=== PATIENT | male | born 1970 | race African-American/Black ===

== ENCOUNTER 2020-01-11 09:06 | Emergency (ER) | payer OTHER ==
[2020-01-11 09:19] VITALS: BP 158/89; PULSE 77; TEMP 98.6; BMI 42.2
[2020-01-11] MEDS ORDERED: NAPROXEN 500 MG TABLET PO ONE (09:25)
[2020-01-11] MEDS ORDERED: NAPROXEN 500 MG TABLET ONE (09:32)
== END 2020-01-11 10:12 | disposition home or self-care (01) ==
LOC: JER 09:06 → JERFT 09:06
DX: M25.552 Pain in left hip (principal); M54.5 Low back pain; V89.2XXA Person injured in unspecified motor-vehicle accident, traffic, initial encounter
CPT/HCPCS: 72100-TC-FY; 73502-TC-LT-FY; 99284-25

== ENCOUNTER 2024-02-16 17:50 | Observation (INO) | payer BC, OTHER ==
[2024-02-16] MEDS ORDERED: ACETAMINOPHEN INJECTION 100 ML ONE (18:51)
[2024-02-16] MEDS: ACETAMINOPHEN 1000 MG/100 ML BAG IVPB ONE (18:59)
[2024-02-16 19:13] LABS: BASO % 0.8 % (0-2.0); EOS % 2.8 % (0-4.5); HEMATOCRIT 41.5 % (35.4-49); HEMOGLOBIN 14.1 GM/dL (11.7-16.9); LYMPH % 13.6 % (8-40); MCH 31.9 pg (25.7-33.7); MEAN CELL VOLUME 93.9 fl (80-96); MEAN PLT VOLUME 8.6 fl (7.5-11.1); MONO % 15.3 % (3.8-10.2); NEUT % 67.5 % (42.8-82.8); PLATELET COUNT 126 10^3/uL (134-434); RBC 4.42 M/mm3 (4.00-5.60); RDW 13.6 % (11.9-15.9); WHITE BLOOD COUNT 3.6 K/mm3 (4.0-10.0)
[2024-02-16 19:33] LABS: POTASSIUM 4.1 mmol/L (3.5-5.1)
[2024-02-16 19:36] LABS: CALCIUM 8.6 mg/dL (8.5-10.1)
[2024-02-16 19:37] LABS: ALBUMIN 2.9 g/dl (3.4-5.0)
[2024-02-16 19:40] LABS: CREATININE 0.7 mg/dL (0.55-1.3)
[2024-02-16 19:42] LABS: BILIRUBIN,TOTAL 0.5 mg/dL (0.2-1); TOT PROT 8.1 g/dl (6.4-8.2)
[2024-02-16 19:45] LABS: N-TERMINAL BNP 128.2 pg/ml (5-125)
[2024-02-16] MEDS ORDERED: OSELTAMIVIR PHOSPHATE 75 MG CAPSULE ONE (20:35)
[2024-02-16] MEDS: OSELTAMIVIR PHOSPHATE 75 MG CAPSULE PO ONE (20:42)
[2024-02-16 21:08] LABS: EPI CELLS 30 /uL (0-25.1); HYALINE CASTS 1 /uL (0-3.1); URINE APPEARANCE CLEAR; URINE BACTERIA 81 /uL (0-1359); URINE BILIRUBIN NEGATIVE (NEGATIVE); URINE COLOR YELLOW; URINE GLUCOSE (UA) NEGATIVE (NEGATIVE); URINE KETONE NEGATIVE (NEGATIVE); URINE LEUK ESTERASE 2+ (NEGATIVE); URINE NITRITE NEGATIVE (NEGATIVE); URINE PROTEIN NEGATIVE (NEGATIVE); URINE RBC 17 /uL (0-23.9); URINE WBC 323 /uL (0-25.8)
[2024-02-16] MEDS: BENZONATATE 200 MG CAPSULE PO PRN (22:57)
[2024-02-17] MEDS ORDERED: FUROSEMIDE 40 MG/4 ML INJECTABLE VIAL ONE (01:22)
[2024-02-17] MEDS: FUROSEMIDE 40 MG/4 ML INJECTABLE VIAL IVPUSH ONE (01:44)
[2024-02-17 08:42] LABS: HEMOGLOBIN 13.1 GM/dL (11.7-16.9); MCH 32.1 pg (25.7-33.7); MCHC 34.4 g/dl (32.0-35.9); MEAN CELL VOLUME 93.2 fl (80-96); MEAN PLT VOLUME 8.1 fl (7.5-11.1); PLATELET COUNT 107 10^3/uL (134-434); RBC 4.07 M/mm3 (4.00-5.60); RDW 13.3 % (11.9-15.9); WHITE BLOOD COUNT 3.1 K/mm3 (4.0-10.0)
[2024-02-17 09:07] LABS: CALCIUM 8.4 mg/dL (8.5-10.1)
[2024-02-17 09:08] LABS: ALBUMIN 2.8 g/dl (3.4-5.0); BLOOD UREA NITROGEN 10.7 mg/dL (7-18); MAGNESIUM 1.6 mg/dL (1.8-2.4)
[2024-02-17 09:10] LABS: CHOLESTEROL 348 mg/dL (50-200)
[2024-02-17 09:11] LABS: CREATININE 0.7 mg/dL (0.55-1.3); PHOSPHOROUS 3.1 mg/dL (2.5-4.9)
[2024-02-17 09:12] LABS: LDL CHOLESTEROL (ONLY SJRH) 256 mg/dL (5-100)
[2024-02-17 09:13] LABS: BILIRUBIN,TOTAL 0.8 mg/dL (0.2-1); HDL CHOLESTEROL 57 mg/dL (40-60); TOT PROT 7.5 g/dl (6.4-8.2)
[2024-02-17] MEDS ORDERED: ENOXAPARIN NA (PORCINE) 40 MG/0.4 ML DISP.SYRIN SQ ONE (09:46)
[2024-02-17] MEDS ORDERED: OSELTAMIVIR PHOSPHATE 75 MG CAPSULE ONE (09:46)
[2024-02-17] MEDS ORDERED: NICOTINE 14 MG/24 HOURS TOPICAL PATCH TD ONE (09:46)
[2024-02-17] MEDS ORDERED: ENOXAPARIN NA (PORCINE) 40 MG/0.4 ML DISP.SYRIN SQ SCH (10:00)
[2024-02-17] MEDS: NICOTINE 14 MG/24 HOURS TOPICAL PATCH TD SCH (10:07)
[2024-02-17] MEDS: OSELTAMIVIR PHOSPHATE 75 MG CAPSULE PO SCH (10:07)
[2024-02-17] MEDS: ENOXAPARIN NA (PORCINE) 40 MG/0.4 ML DISP.SYRIN SQ SCH (10:07)
[2024-02-17 10:38] LABS: ANISOCYTOSIS 0; HELMET CELLS 0; HOWELL-JOLLY BODIES 0; MACROCYTOSIS 0; OVALOCYTE 0; ROULEAU 0; SICKELED CELLS 0; TARGET CELLS 0; TEAR DROP CELLS 0; TOXIC GRANULATION 0
[2024-02-17 12:17] VITALS: RESP 20
[2024-02-17 15:20] VITALS: BMI 47.2
[2024-02-17] MEDS: MAGNESIUM 1GM/D5W 100ML - 100 ML IVPB IVPB ONE (17:10)
[2024-02-17] MEDS ORDERED: MELATONIN 5 MG TABLETS PO PRN (22:48)
[2024-02-18 09:26] VITALS: BP 167/100; PULSE 84; TEMP 97.5
[2024-02-18 11:51] LABS: HEMATOCRIT 40.4 % (35.4-49); HEMOGLOBIN 13.9 GM/dL (11.7-16.9); MCH 32.2 pg (25.7-33.7); MCHC 34.3 g/dl (32.0-35.9); MEAN CELL VOLUME 93.8 fl (80-96); PLATELET COUNT 114 10^3/uL (134-434); RDW 13.7 % (11.9-15.9)
[2024-02-18 11:56] LABS: WHITE BLOOD COUNT 1.9 K/mm3 (4.0-10.0)
[2024-02-18 12:15] LABS: POTASSIUM 4.4 mmol/L (3.5-5.1)
[2024-02-18 12:18] LABS: CALCIUM 8.6 mg/dL (8.5-10.1)
[2024-02-18 12:19] LABS: ALBUMIN 2.8 g/dl (3.4-5.0); BLOOD UREA NITROGEN 10.8 mg/dL (7-18); MAGNESIUM 2.2 mg/dL (1.8-2.4)
[2024-02-18 12:21] LABS: CREATININE 0.6 mg/dL (0.55-1.3)
[2024-02-18 12:23] LABS: BILIRUBIN,TOTAL 0.6 mg/dL (0.2-1)
[2024-02-18 12:24] LABS: TOT PROT 7.7 g/dl (6.4-8.2)
[2024-02-18 13:37] LABS: ANISOCYTOSIS 0; HELMET CELLS 0; HOWELL-JOLLY BODIES 0; MACROCYTOSIS 0; OVALOCYTE 0; ROULEAU 0; SICKELED CELLS 0; TARGET CELLS 0; TEAR DROP CELLS 0; TOXIC GRANULATION 0
== END 2024-02-18 15:17 | disposition home or self-care (01) ==
LOC: JER 17:50 → JERBED 20:18 → J6S 02-17 14:14
PROVIDERS: ADMIT Internal Medicine; ATTEND Internal Medicine
PROC: HZ31ZZZ Individual Counseling for Substance Abuse Treatment, Behavioral (ICD-10-PCS; principal; 2024-02-16)
PROC: 3E033NZ Introduction of Analgesics, Hypnotics, Sedatives into Peripheral Vein, Percutaneous Approach (ICD-10-PCS; 2024-02-16)
PROC: 3E03329 Introduction of Other Anti-infective into Peripheral Vein, Percutaneous Approach (ICD-10-PCS; 2024-02-16)
DX: R74.8 Abnormal levels of other serum enzymes (principal); J96.01 Acute respiratory failure with hypoxia; J09.X2 Influenza due to identified novel influenza A virus with other respiratory manifestations; N39.0 Urinary tract infection, site not specified; D69.6 Thrombocytopenia, unspecified; D72.819 Decreased white blood cell count, unspecified; I25.10 Atherosclerotic heart disease of native coronary artery without angina pectoris; F17.200 Nicotine dependence, unspecified, uncomplicated; Z95.1 Presence of aortocoronary bypass graft; Z88.0 Allergy status to penicillin; E66.9 Obesity, unspecified; Z68.42 Body mass index [BMI] 45.0-49.9, adult
CPT/HCPCS: 0241U-QW; 36415; 71045-TC-FY; 76705-TC; 80053; 80061; 81003; 83036; 83735; 83880; 84100; 84443; 84484; 85025; 86140; 86705; 86707; 86708; 87086; 87340; 87350; 87517; 87902; 93005; 93010; 93306-TC; 93308; 99285-25; G0378; J0131